=== PATIENT | male | born 1960 | race Caucasian/White ===

== ENCOUNTER 2019-07-08 15:25 | Inpatient (IN) ==
[2019-07-08] MEDS ORDERED: ZOFRAN INJ 4 MG VIAL IVP PRN (17:45)
[2019-07-08 18:11] LABS: BASOPHILS # (AUTO) 0.1 X10^3/uL (0.0-0.1); BASOPHILS % (AUTO) 0.5 % (0.2-1.0); EOSINOPHILS # (AUTO) 0.1 x10^3/uL (0.0-0.2); HEMATOCRIT 46.4 % (42.0-54.0); HEMOGLOBIN 15.7 g/dL (13.5-18.0); LYMPHOCYTES # (AUTO) 2.6 X10^3/uL (1.3-2.9); LYMPHOCYTES % (AUTO) 21.6 % (21.0-51.0); MEAN CORPUSCULAR HEMOGLOBIN 32.9 pg (27.0-34.0); MEAN CORPUSCULAR HGB CONC 33.8 g/dL (33.0-35.0); MEAN CORPUSCULAR VOLUME 97.4 fL (80.0-100.0); MEAN PLATELET VOLUME 9.8 fL (7.4-11.0); MONOCYTES # (AUTO) 0.8 x10^3/uL (0.3-0.8); MONOCYTES % (AUTO) 6.6 % (0.0-13.0); NEUTROPHILS # (AUTO) 8.5 x10^3/uL (2.2-4.8); NEUTROPHILS % (AUTO) 70.3 % (42.0-75.0); PLATELET COUNT 489 X10^3/uL (150.0-450.0); RED BLOOD COUNT 4.76 X10^6/uL (4.7-6.0); RED CELL DISTRIBUTION WIDTH 16.3 % (11.6-16.5); WHITE BLOOD COUNT 12.1 X10^3/uL (3.6-10.0)
[2019-07-08 18:21] LABS: ALANINE AMINOTRANSFERASE 94 Units/L (12-78); ALBUMIN 2.5 g/dL (3.4-5.0); ALKALINE PHOSPHATASE 891 Units/L (46-116); ASPARTATE AMINO TRANSFERASE 75 Units/L (15-37); BLOOD UREA NITROGEN 15 mg/dL (7-18); CALCIUM 8.9 mg/dL (8.5-10.1); CARBON DIOXIDE 35.1 mmol/L (21-32); CHLORIDE 97 mmol/L (98-107); COR CA(FOR HYPOALB) 10.1 mg/dL (8.5-10.1); CREATININE 1.15 mg/dL (0.70-1.30); SODIUM 138 mmol/L (136-145); TOTAL PROTEIN 7.3 g/dL (6.4-8.2); eGFR NON BLACK RACES > 60 (>60)
[2019-07-08 18:30] VITALS: BMI 21.6
[2019-07-08 18:30] LABS: AMMONIA < 10 umol/L (11-32)
[2019-07-08 18:39] LABS: PLATELET MORPHOLOGY COMMENT ABNORMAL (NORMAL)
[2019-07-08] MEDS: NS 1000 ML 1,000 ML IV SCH ×2 (19:29→21:00)
[2019-07-08] MEDS: DEMEROL INJ IVP PRN (20:26)
[2019-07-08 20:37] LABS: BILIRUBIN,URINE 2+ (NEGATIVE); BLOOD/HEMOGLOBIN,URINE NEGATIVE (NEGATIVE); GLUCOSE, URINE NEGATIVE (NEGATIVE); KETONES,URINE NEGATIVE (NEGATIVE); LEUKOCYTE ESTERASE ,URINE 1+ (NEGATIVE); NITRITES,URINE NEGATIVE (NEGATIVE); PROTEIN,URINE 2+ (NEGATIVE); UROBILINOGEN,URINE 3+ (NORMAL)
[2019-07-08 20:43] LABS: APPEARANCE,URINE CLEAR (CLEAR); COLOR,URINE AMBER (YELLOW)
[2019-07-08 20:44] LABS: BACTERIA,URINE NEGATIVE /HPF (NEGATIVE); HYALINE CASTS, URINE FEW /LPF (NEGATIVE); RBC,URINE NONE SEEN /HPF (0-3); SQUAMOUS EPITHELIAL CELL,UR NEGATIVE /HPF (NEGATIVE)
[2019-07-08] MEDS: DILAUDID INJ IVP PRN (23:05)
--- NOTE | 2019-07-08 23:05 | RAD ---
Chest, one view Indication: Shortness of breath Comparison: CT chest 04/16/2019 Findings: Heart is normal in size. Basilar predominant ill-defined nodular opacities appear essentially stable when compared to the patient's prior CT chest examination. Upper lungs remain predominantly clear. No significant pleural effusion is identified. No pneumothorax. Impression: Grossly stable basilar predominant bilateral nodular opacities, which again may reflect metastatic disease, for which PET-CT is again recommended for further evaluation, if not already performed. Underlying pneumonia not excluded. Correlate clinically. Reported By:
[2019-07-09] MEDS: DEMEROL INJ IVP PRN (00:45)
[2019-07-09] MEDS: DILAUDID INJ IVP PRN ×3 (03:03→21:58)
[2019-07-09] MEDS ORDERED: NS 100 ML IV 100 ML IV ONE (05:14)
[2019-07-09 06:34] LABS: BASOPHILS # (AUTO) 0.1 X10^3/uL (0.0-0.1); BASOPHILS % (AUTO) 0.8 % (0.2-1.0); EOSINOPHILS # (AUTO) 0.1 x10^3/uL (0.0-0.2); EOSINOPHILS % (AUTO) 0.6 % (0.9-2.9); HEMOGLOBIN 14.7 g/dL (13.5-18.0); LYMPHOCYTES # (AUTO) 1.5 X10^3/uL (1.3-2.9); MEAN CORPUSCULAR HEMOGLOBIN 32.9 pg (27.0-34.0); MEAN CORPUSCULAR HGB CONC 34.1 g/dL (33.0-35.0); MEAN CORPUSCULAR VOLUME 96.5 fL (80.0-100.0); MEAN PLATELET VOLUME 9.5 fL (7.4-11.0); MONOCYTES # (AUTO) 0.8 x10^3/uL (0.3-0.8); MONOCYTES % (AUTO) 5.7 % (0.0-13.0); NEUTROPHILS % (AUTO) 81.9 % (42.0-75.0); PLATELET COUNT 449 X10^3/uL (150.0-450.0); RED BLOOD COUNT 4.45 X10^6/uL (4.7-6.0); RED CELL DISTRIBUTION WIDTH 16.2 % (11.6-16.5); WHITE BLOOD COUNT 13.5 X10^3/uL (3.6-10.0)
[2019-07-09 06:52] LABS: ALANINE AMINOTRANSFERASE 86 Units/L (12-78); ALBUMIN 2.3 g/dL (3.4-5.0); ALKALINE PHOSPHATASE 814 Units/L (46-116); ASPARTATE AMINO TRANSFERASE 69 Units/L (15-37); BLOOD UREA NITROGEN 14 mg/dL (7-18); CALCIUM 8.3 mg/dL (8.5-10.1); CARBON DIOXIDE 33.4 mmol/L (21-32); CHLORIDE 98 mmol/L (98-107); COR CA(FOR HYPOALB) 9.7 mg/dL (8.5-10.1); COR NA(FOR HYPERGLY) 137 mmol/L (136-145); CREATININE 0.98 mg/dL (0.70-1.30); SODIUM 136 mmol/L (136-145); TOTAL PROTEIN 6.8 g/dL (6.4-8.2); eGFR NON BLACK RACES > 60 (>60)
[2019-07-09] MEDS: NS 1000 ML 1,000 ML IV SCH ×2 (07:00→16:53)
[2019-07-09 08:51] LABS: AMYLASE 17 Units/L (25-115); LIPASE 33 Units/L (73-393)
[2019-07-09] MEDS: DUONEB 0.5 MG/3 MG NEB SCH ×2 (08:57→20:26)
[2019-07-09] MEDS ORDERED: DILAUDID INJ IVP PRN (10:12)
[2019-07-09] MEDS ORDERED: LOVENOX INJ 40 MG SYR SC SCH (11:00)
[2019-07-09] MEDS: PROTONIX INJ 40 MG VIAL IVP SCH (12:08)
[2019-07-09] MEDS: LEVAQUIN PREMIX IV 500 MG 500 MG/100 ML BAG IV SCH (12:09)
[2019-07-09] MEDS: LASIX IVP SCH ×2 (12:09→20:48)
[2019-07-09] MEDS: CHECK PATCH XX SCH ×2 (12:34→20:50)
--- NOTE | 2019-07-09 15:24 | CT ---
CT abdomen and pelvis with contrast Indication: Pancreas cancer with metastatic disease Comparison: 08/23/2018 CT Technique: Helical images through the abdomen and pelvis after IV contrast. Coronal and sagittal reformats provided Findings: Limited images through the lung bases shows new small left effusion and innumerable spiculated pulmonary opacities concerning for metastatic disease. Superimposed infection not excluded. Review of bone windows shows no destructive osseous lesion. Abdomen: Innumerable scattered liver lesions are noted, compatible with metastatic disease. Background of steatotic changes noted. There is moderate ascites scattered throughout the abdomen and pelvis, with a nodular appearance to the omentum suggesting omental implants. Hypodensity in the region of the pancreas body, at the previous site of the resection is noted on axial images 27-29, probably local recurrence. The common bile duct is now dilated as is the gallbladder, and obstruction at the common bile duct is not excluded. New soft tissue mass encases the SMA and celiac axis. 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 Numerous perigastric varices are noted. This measures 4.8 x 4.4 cm There is delayed nephrogram on the left, without definite obstructing lesion in the ureter. However, compression of the ureter may be occurring. There is shotty retroperitoneal adenopathy. 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 Moderate stool seen in the right colon without acute colonic abnormality convincingly demonstrated. Adrenal glands appear relatively normal. Stomach and small bowel appear grossly normal. Pelvis: The urinary bladder and rectum show no acute abnormality. Prostate gland is enlarged. Impression: 1. Extensive metastatic disease is developed from the prior, detail below. 2. In addition, new large soft tissue mass is seen in the region of the pancreas body, encasing the SMA and celiac axis, with portal vein occlusion as well. Cavernous transformation of the portal vein is noted. 3. Innumerable hepatic metastases and lung metastases noted. 4. Abdominal ascites, and varices, probably due to the portal vein occlusion and to some extent, although and omental implants would appear similar and are possible. 5. Occlusion of the left common iliac artery, moderate stool in the colon, left effusion and other findings as above 6. Dilated common bile duct and gallbladder. Occlusion of the common bile duct or stenosis from the recurrent pancreas mass is possible. 7. Hepatic steatosis Reported By:
--- NOTE | 2019-07-09 17:44 | DR.UPDATE ---
H&P Update History and Physical Update: History and Physical reviewed and patient examined. 07/08/2019 PT EXAMINED WITHOUT CHANGES TO H&P Changes noted: NO Prescription drug monitoring program results: PDMP reviewed and no concerns identified H&P Reviewed: Yes Patient was examined?: Yes
--- NOTE | 2019-07-09 17:48 | PCM.PROG ---
Progress Note - Progress Note for Day of Date of Exam: 07/09/19 - Subjective Subjective: 59 WM DIRECT ADMIT FROM DR LEA OFFICE WITH INTRACTABLE ABDOMINAL PAIN DUE TO METASTATIC PANCREATIC CANCER. PT HAS CXR REVEALING BILATERAL PNEUMONIA. PT WAS STARTED ON [place], RESP THERAPY, STRICT I & OS. PT IS NPO FOR CT SCAN OF ABD AND PELVIS. PT ABD DIFFUSE DISTENTION. PT CO NAUSEA WITH LIMITED PO INTAKE. PT REPORTS HE TAKEN ROXICODONE 30MG, TAKEN 180 SINCE June DUE TO UNCONTROLLED PAIN. PT STATES HE HAS SEEN DR WALKER AND AGREED FOR PAIN RELIEF AND COMFORT MEASURES. PT SIGNED A DNR AND REQUESTED HOSPICE CONSULTATION. DURAGESIC PATCH STARTED TODAY FOR PAIN CONTROL - Past Medical Family Social History Past Med/Fam/Surg Hx: No changes since H&P Allergies: Allergies adhesive tape Allergy (Verified 07/08/19 19:06) Sulfa (Sulfonamide Antibiotics) [SULFA] Allergy (Verified 07/08/19 19:06) - Review of Systems ROS: No change since H&P - Vital Signs and I&O's Vital Signs: Temperature 98.1 F Pulse Rate [Right Brachial] 108 Pulse Rate 106 Respiratory Rate 18 Blood Pressure [Right Arm] 133/79 O2 Sat by Pulse Oximetry 95 Intake and Output: Intake & Output 07/07/19 07/08/19 07/09/19 07/10/19 11:59 11:59 11:59 11:59 Intake Total 1600 / 1600 1095 / 1095 Output Total 250 / 250 Balance 1350 / 1350 1095 / 1095 - Physical Exam Oriented: Normal Eyes: Normal Ear: Normal Nose: Normal Respiratory: Diminished, Wheezes Cardiovascular: Normal. negative: Edema : Normal Auscultation: Bowel Sounds: Decreased Palpation: Spleen Enlarged, Liver Enlarged Tenderness: Diffuse, Moderate Skin: Decreased Turgur Musculoskeletal: Back:Thoracic, Back:Lumbar Psychiatric: Anxiety Affect: Anxious Speech Pattern: Clear, Appropriate - Laboratory and Diagnostics Result Diagrams: 07/09/19 05:50 07/09/19 05:50 Labs: 07/08/19 20:30 Urine,Clean Catch Urine Culture - Preliminary Laboratory WBC 13.5 X10^3/uL (3.6-10.0) H 07/09/19 05:50 RBC 4.45 X10^6/uL (4.7-6.0) L 07/09/19 05:50 Hgb 14.7 g/dL (13.5-18.0) 07/09/19 05:50 Hct 43.0 % (42.0-54.0) 07/09/19 05:50 MCV 96.5 fL (80.0-100.0) 07/09/19 05:50 MCH 32.9 pg (27.0-34.0) 07/09/19 05:50 MCHC 34.1 g/dL (33.0-35.0) 07/09/19 05:50 RDW 16.2 % (11.6-16.5) 07/09/19 05:50 Plt Count 449 X10^3/uL (150.0-450.0) 07/09/19 05:50 Plt Count Comment Adequate (ADEQUATE) 07/08/19 17:57 MPV 9.5 fL (7.4-11.0) 07/09/19 05:50 Neut % (Auto) 81.9 % (42.0-75.0) H 07/09/19 05:50 Lymph % (Auto) 11.0 % (21.0-51.0) L 07/09/19 05:50 [place] % (Auto) 5.7 % (0.0-13.0) 07/09/19 05:50 Eos % (Auto) 0.6 % (0.9-2.9) L 07/09/19 05:50 Baso % (Auto) 0.8 % (0.2-1.0) 07/09/19 05:50 Neut # (Auto) 11.0 x10^3/uL (2.2-4.8) H 07/09/19 05:50 Lymph # (Auto) 1.5 X10^3/uL (1.3-2.9) 07/09/19 05:50 [place] # (Auto) 0.8 x10^3/uL (0.3-0.8) 07/09/19 05:50 Eos # (Auto) 0.1 x10^3/uL (0.0-0.2) 07/09/19 05:50 Baso # (Auto) 0.1 X10^3/uL (0.0-0.1) 07/09/19 05:50 Absolute Nucleated RBC 0.1 /100WBC 07/09/19 05:50 Plt Morphology Comment Abnormal (NORMAL) 07/08/19 17:57 RBC Morphology Normal (NORMAL) 07/08/19 17:57 PT 50.3 SECONDS (11.8-14.3) 07/09/19 09:56 INR Target Range - 07/09/19 09:56 INR 5.76 (0.8-1.3) H* 07/09/19 09:56 Sodium 136 mmol/L (136-145) 07/09/19 05:50 Corrected Sodium 137 mmol/L (136-145) 07/09/19 05:50 Potassium 4.3 mmol/L (3.5-5.1) 07/09/19 05:50 Chloride 98 mmol/L (98-107) 07/09/19 05:50 Carbon Dioxide 33.4 mmol/L (21-32) H 07/09/19 05:50 BUN 14 mg/dL (7-18) 07/09/19 05:50 Creatinine 0.98 mg/dL (0.70-1.30) 07/09/19 05:50 Est GFR (MDRD) Af Amer > 60 (>60) 07/09/19 05:50 Est GFR (MDRD) Non-Af > 60 (>60) 07/09/19 05:50 Glucose 121 mg/dL (65-99) H 07/09/19 05:50 Calcium 8.3 mg/dL (8.5-10.1) L 07/09/19 05:50 Corrected Calcium 9.7 mg/dL (8.5-10.1) 07/09/19 05:50 Total Bilirubin 1.80 mg/dL (0.2-1.0) H 07/09/19 05:50 AST 69 Units/L (15-37) H 07/09/19 05:50 ALT 86 Units/L (12-78) H 07/09/19 05:50 Alkaline Phosphatase 814 Units/L (46-116) H 07/09/19 05:50 Ammonia < 10 umol/L (11-32) L 07/08/19 17:57 Total Protein 6.8 g/dL (6.4-8.2) 07/09/19 05:50 Albumin 2.3 g/dL (3.4-5.0) L 07/09/19 05:50 Globulin 4.5 g/dL (2.5-4.5) 07/09/19 05:50 Albumin/Globulin Ratio 0.5 Ratio (1.1-2.1) L 07/09/19 05:50 Amylase 17 Units/L (25-115) L 07/09/19 05:50 Lipase 33 Units/L (73-393) L 07/09/19 05:50 Specimen Type Clean catch urine 07/08/19 20:30 Urine Color Gem (YELLOW) 07/08/19 20:30 Urine Appearance Clear (CLEAR) 07/08/19 20:30 Urine pH 5.0 (5.0 - 8.0) 07/08/19 20:30 Ur Specific [place] 1.020 (1.000-1.030) 07/08/19 20:30 Urine Protein 2+ (NEGATIVE) 07/08/19 20:30 Urine Glucose (UA) Negative (NEGATIVE) 07/08/19 20:30 Urine Ketones Negative (NEGATIVE) 07/08/19 20:30 Urine Occult Blood Negative (NEGATIVE) 07/08/19 20:30 Urine Nitrite Negative (NEGATIVE) 07/08/19 20:30 Urine Bilirubin 2+ (NEGATIVE) 07/08/19 20:30 Urine Urobilinogen 3+ (NORMAL) 07/08/19 20:30 Ur Leukocyte Esterase 1+ (NEGATIVE) 07/08/19 20:30 Urine RBC None seen /HPF (0-3) 07/08/19 20:30 Urine WBC 10-20 /HPF (0-5) A 07/08/19 20:30 Ur Squamous Epith Cells Negative /HPF (NEGATIVE) 07/08/19 20:30 Urine Bacteria Negative /HPF (NEGATIVE) 07/08/19 20:30 Hyaline Casts Few /LPF (NEGATIVE) 07/08/19 20:30 Ur Culture Indicated? Yes/culture set up 07/08/19 20:30 - Plan (1) Pneumonia Status: Acute Plan: PNEUMONIA PROTOCOL, PRN SUPPLEMENTAL O2. DUO NEBS. SPUTUM CULTURE. GENTLE IV HYDRATION, BP CONTROL. PAIN CONTROL. NAUSEA CONTROL, VERIFY HOME MEDICATION, STRICT I & OS. CASEMANAGEMENT CONSULT FOR HOSPICE THERAPY (2) Pancreatic carcinoma metastatic to liver Status: Acute (3) Metastatic carcinoma to lung Status: Acute (4) Liver failure Status: Acute
[2019-07-09] MEDS: XANAX PO SCH ×2 (19:24→20:51)
[2019-07-09] MEDS ORDERED: COLACE CAP 100 MG PO SCH (21:00)
[2019-07-09] MEDS ORDERED: NEURONTIN CAP 400 MG PO SCH (21:00)
[2019-07-09] MEDS: PLETAL PO SCH (21:40)
[2019-07-10] MEDS: DILAUDID INJ IVP PRN ×4 (02:18→14:32)
[2019-07-10] MEDS: XANAX PO SCH ×3 (02:29→14:32)
[2019-07-10 06:23] LABS: BASOPHILS % (AUTO) 0.3 % (0.2-1.0); EOSINOPHILS # (AUTO) 0.2 x10^3/uL (0.0-0.2); EOSINOPHILS % (AUTO) 1.3 % (0.9-2.9); HEMATOCRIT 41.6 % (42.0-54.0); HEMOGLOBIN 14.2 g/dL (13.5-18.0); LYMPHOCYTES % (AUTO) 8.1 % (21.0-51.0); MEAN CORPUSCULAR HEMOGLOBIN 33.1 pg (27.0-34.0); MEAN CORPUSCULAR HGB CONC 34.2 g/dL (33.0-35.0); MEAN CORPUSCULAR VOLUME 96.8 fL (80.0-100.0); MEAN PLATELET VOLUME 9.6 fL (7.4-11.0); MONOCYTES # (AUTO) 0.9 x10^3/uL (0.3-0.8); MONOCYTES % (AUTO) 7.2 % (0.0-13.0); NEUTROPHILS # (AUTO) 10.2 x10^3/uL (2.2-4.8); NEUTROPHILS % (AUTO) 83.1 % (42.0-75.0); PLATELET COUNT 476 X10^3/uL (150.0-450.0); RED CELL DISTRIBUTION WIDTH 16.1 % (11.6-16.5); WHITE BLOOD COUNT 12.3 X10^3/uL (3.6-10.0)
[2019-07-10 06:36] LABS: ALANINE AMINOTRANSFERASE 78 Units/L (12-78); ALBUMIN 2.3 g/dL (3.4-5.0); ALKALINE PHOSPHATASE 769 Units/L (46-116); ASPARTATE AMINO TRANSFERASE 58 Units/L (15-37); BLOOD UREA NITROGEN 13 mg/dL (7-18); CALCIUM 8.2 mg/dL (8.5-10.1); CARBON DIOXIDE 35.5 mmol/L (21-32); CHLORIDE 97 mmol/L (98-107); COR CA(FOR HYPOALB) 9.6 mg/dL (8.5-10.1); CREATININE 1.13 mg/dL (0.70-1.30); SODIUM 137 mmol/L (136-145); TOTAL PROTEIN 6.8 g/dL (6.4-8.2); eGFR NON BLACK RACES > 60 (>60)
[2019-07-10] MEDS: ROXICODONE TAB 15 MG PO PRN ×3 (08:45→16:53)
[2019-07-10] MEDS: LEVAQUIN PREMIX IV 500 MG 500 MG/100 ML BAG IV SCH (08:46)
[2019-07-10] MEDS: NS 1000 ML 1,000 ML IV SCH (08:46)
[2019-07-10] MEDS: PROTONIX INJ 40 MG VIAL IVP SCH (08:46)
[2019-07-10] MEDS: PLETAL PO SCH (08:46)
[2019-07-10] MEDS: DUONEB 0.5 MG/3 MG NEB SCH ×2 (08:54→16:47)
[2019-07-10] MEDS: CHECK PATCH XX SCH (08:55)
[2019-07-10] MEDS ORDERED: SINGULAIR TAB 10 MG PO SCH (16:00)
[2019-07-10 16:08] VITALS: BP 106/87
[2019-07-10] MEDS ORDERED: MILK OF MAGNESIA PO SCH (21:00)
== END 2019-07-10 17:15 | disposition hospice, home (50) | DRG 435 ==
LOC: MED/SURG → OBSVTOIN 16:52
PROVIDERS: ADMIT Internal Medicine; ATTEND Internal Medicine
DX: K76.0 Fatty (change of) liver, not elsewhere classified; J18.9 Pneumonia, unspecified organism; C25.9 Malignant neoplasm of pancreas, unspecified; R14.0 Abdominal distension (gaseous); C78.00 Secondary malignant neoplasm of unspecified lung; E11.65 Type 2 diabetes mellitus with hyperglycemia; I10 Essential (primary) hypertension; C78.7 Secondary malignant neoplasm of liver and intrahepatic bile duct; Z66 Do not resuscitate; E03.8 Other specified hypothyroidism; E78.2 Mixed hyperlipidemia; K72.90 Hepatic failure, unspecified without coma; R79.1 Abnormal coagulation profile
CPT/HCPCS: 36415; 71010; 71045; 74177; 80053; 81001; 82140; 82150; 83690; 85025; 85610; 87086; 94760; A4216; A4222; C9113; J1170; J1940; J1956; J2175; J2405; J7030; J7050